=== PATIENT | female | born 1975 | race Caucasian/White ===

== ENCOUNTER 2018-06-19 08:44 | Emergency (ER) | payer SELFPAY ==
[~2018-06-19] VITALS: Ht 165.1 cm; Wt 82.4 kg
[2018-06-19 08:49] VITALS: Ht 165.1 cm; Wt 82.4 kg
[2018-06-19] MEDS ORDERED: SODIUM CHLORIDE 0.9% 1L BAG IV* STA (08:54)
[2018-06-19] MEDS ORDERED: ACETAMINOPHEN 325 MG TAB PO STA (08:54)
[2018-06-19] MEDS ORDERED: CEFTRIAXONE 1 GM/50 ML (PMX) 50 ML IVPB ONE (10:00)
[2018-06-19] MEDS ORDERED: ACET325T33 PO (10:35)
[2018-06-19] MEDS ORDERED: IBUP-1542 PO (10:35)
[2018-06-19] MEDS ORDERED: CIPR500T4 PO (10:35)
--- NOTE | 2018-06-19 10:37 | ERD ---
ER Documentation Chief Complaint Chief Complaint generalized joint pain x 2 months HPI Patient is a 43-year-old female with no medical problems who presents with joint pain. She has diffuse joint pain for the past 2 months and then started with fever today. The pain in her joints worsened today as well. She has had no treatment for the pain or fever. Upon review of old medical records this is the patient's first visit to the emergency department. She does have a primary doctor but does not remember the name. ROS All systems reviewed and are negative except as per history of present illness. Medications Home Meds Active Scripts Acetaminophen* (Tylenol*) 325 Mg Tablet, 2 TAB PO Q8 PRN for PAIN AND OR ELEVATED TEMP, #20 TAB Prov:TOSHA WYLIE MD 06/19/18 Ibuprofen* (Motrin*) 600 Mg Tab, 600 MG PO Q6H PRN for PAIN AND OR ELEVATED TEMP, #30 TAB Prov:TOSHA WYLIE MD 06/19/18 Ciprofloxacin Hcl* (Ciprofloxacin Hcl*) 500 Mg Tablet, 500 MG PO BID for 7 Days, TAB Prov:TOSHA WYLIE MD 06/19/18 Allergies Allergies: Coded Allergies: No Known Allergy (Unverified , 06/19/18) PMhx/Soc Medical and Surgical Hx: pt denies Medical Hx, pt denies Surgical Hx Hx Alcohol Use: No Hx Substance Use: No Hx Tobacco Use: No Smoking Status: Never smoker FmHx Family History: diabetes Physical Exam Vitals Vital Signs Date Temp Pulse Resp B/P (MAP) Pulse Ox O2 O2 Flow FiO2 Time Delivery Rate 06/19/18 98.5 89 23 120/54 98 10:17 (76) 06/19/18 101.8 09:15 06/19/18 Nasal 2 09:10 Cannula 06/19/18 101.8 121 18 117/77 98 08:49 (90) Physical Exam Const: No acute distress Head: Atraumatic Eyes: Normal Conjunctiva ENT: Normal External Ears, Nose and Mouth. Neck: Full range of motion. No meningismus. Resp: Clear to auscultation bilaterally Cardio: Tachycardic rate without murmur Abd: Soft, non tender, non distended. Normal bowel sounds Skin: No petechiae or rashes Back: No midline or flank tenderness Ext: No cyanosis, or edema, full range of motion in all joints Neur: Awake and alert Psych: Normal Mood and Affect Result Diagram: 06/19/18 0915 06/19/18 0915 Results 24 hrs Laboratory Tests Test 06/19/18 09:14 06/19/18 09:15 06/19/18 09:21 06/19/18 09:23 POC Venous 1.3 mmol/L Lactate White Blood Count 9.9 10^3/ul Red Blood Count 4.10 10^6/ul Hemoglobin 10.8 g/dl Hematocrit 33.3 % Mean Corpuscular 81.2 fl Volume Mean Corpuscular 26.3 pg Hemoglobin Mean Corpuscular 32.4 g/dl Hemoglobin Concen t Red Cell 13.3 % Distribution Width Platelet Count 342 10^3/UL Mean Platelet 9.1 fl Volume Immature 0.400 % Granulocytes % Neutrophils % 79.7 % Lymphocytes % 12.6 % Monocytes % 6.8 % Eosinophils % 0.2 % Basophils % 0.3 % Nucleated Red 0.0 /100WBC Blood Cells % Immature 0.040 10^3/ul Granulocytes # Neutrophils # 7.9 10^3/ul Lymphocytes # 1.2 10^3/ul Monocytes # 0.7 10^3/ul Eosinophils # 0.0 10^3/ul Basophils # 0.0 10^3/ul Nucleated Red 0.0 10^3/ul Blood Cells # Prothrombin Time 13.1 Sec Prothrombin Time 1.0 Ratio INR International 0.98 Normalized Ratio Activated 32.7 Sec Partial Thrombopl ast Time Sodium Level 137 mmol/L Potassium Level 3.9 mmol/L Chloride Level 100 mmol/L Carbon Dioxide 24 mmol/L Level Anion Gap 13 Blood Urea 11 mg/dl Nitrogen Creatinine 0.54 mg/dl Est Glomerular > 60 mL/min Filtrat Rate mL/min Glucose Level 104 mg/dl Calcium Level 9.0 mg/dl Total Bilirubin 0.5 mg/dl Direct Bilirubin 0.00 mg/dl Indirect 0.5 mg/dl Bilirubin Aspartate Amino 19 IU/L Transf (AST/SGOT) Alanine 19 IU/L Aminotransferase (ALT/SGPT) Alkaline 108 IU/L Phosphatase Troponin I < 0.012 ng/ml Total Protein 7.9 g/dl Albumin 4.2 g/dl Globulin 3.70 g/dl Albumin/Globulin 1.13 Ratio Urine Color YELLOW Urine Clarity SLIGHTLY CLOUDY Urine pH 6.0 Urine Specific 1.012 [place] Urine Ketones NEGATIVE mg/dL Urine Nitrite NEGATIVE mg/dL Urine Bilirubin NEGATIVE mg/dL Urine NEGATIVE mg/dL Urobilinogen Urine Leukocyte 3+ Abbe/ul Esterase Urine Microscopic 15 /HPF RBC Urine Microscopic > 182 /HPF WBC Urine Squamous FEW /HPF Epithelial Cells Urine Bacteria MODERATE /HPF Urine Hemoglobin 2+ mg/dL Urine Glucose NEGATIVE mg/dL Urine Total 1+ mg/dl Protein POC Beta HCG, NEGATIVE Qualitative Current Medications Medications Dose Sig/Ken Start Time Status Last (Trade) Ordered Route PRN Stop Time Admin Dose Reason Admin Sodium 2,470 ml BOLUS OVER 2 06/19/18 DC 06/19/18 Chloride HOURS STAT 08:54 09:14 (NS) IV* 06/19/18 08:56 650 mg ONCE STAT 06/19/18 DC 06/19/18 Acetaminophen PO 08:54 09:15 (Tylenol 06/19/18 08:56 Tab) Ceftriaxone 50 ml @ ONCE ONCE 06/19/18 DC 06/19/18 Sodium 100 mls/hr IVPB 10:00 10:10 06/19/18 10:29 Procedures/MDM EKG read by me: Rate/Rhythm: Sinus tachycardia rate of 110 Intervals: Normal Impression: Sinus tachycardia without ischemia Chest x-ray read by radiology. Patient is a 43-year-old female with no medical problems who presents with joint pain and fevers. She was found to have acute pyelonephritis which I believe is the cause of her fevers and pain. The patient was given ceftriaxone 1 g IV after cultures were done. The patient was given Tylenol and fluids and her vital signs have normalized. The patient is well-appearing otherwise and I doubt sepsis. The patient will be discharged with a prescription for Cipro, ibuprofen, and Tylenol. The patient should follow-up with her primary doctor within 24-48 hours for reevaluation. She can return sooner for any worsening symptoms. Departure Diagnosis: Primary Impression: Pyelonephritis Condition: Fair Patient Instructions: Pyelonephritis, Female (Adult) Referrals: Your doctor Additional Instructions: Llame al doctor MAANA y julianne mitesh ELIZABETH PARA DENTRO DE 1-2 ADRIAN.Dgale a la secretaria que nosotros le instruimos hacer esta elizabeth.Avise o llame si carlos condicin se empeora antes de la elizabeth. Regresa aqui si peor o no mejor. OSTICK,TOSHA MD Jun 19, 2018 10:37
[2018-06-19 10:44] VITALS: BP 127/77; PULSE 74; RESP 19
== END 2018-06-19 10:45 | disposition home or self-care (01) ==
LOC: E/R 08:44
DX: N12 Tubulo-interstitial nephritis, not specified as acute or chronic (principal); R40.2142 Coma scale, eyes open, spontaneous, at arrival to emergency department; R40.2252 Coma scale, best verbal response, oriented, at arrival to emergency department; R10.9 Unspecified abdominal pain
CPT/HCPCS: 71045; 76705; 80053; 81001; 81025; 83605; 83690; 84484; 85025; 85610; 85730; 87040; 87086; 87400; 93005; J0696; J7030; 36415; 96374